=== PATIENT | female | born 1985 | race Caucasian/White ===

== ENCOUNTER 2021-06-10 08:00 | Emergency (ER) | payer MEDICAID, SELFPAY ==
--- NOTE | ~2021-06-10 | CT_ITS ---
EXAMINATION: CT HEAD WITHOUT IV CONTRAST CT MAXILLOFACIAL WITHOUT IV CONTRAST INDICATION: Right ear pain/bleeding. Mastoid tenderness. COMPARISON: Head CT 05/11/2019. TECHNIQUE: Multidetector CT acquisitions of the head and maxillofacial region were obtained without IV contrast. Multiplanar reformats were acquired and utilized for image interpretation. This CT examination was performed using dose optimization techniques as appropriate, variously including the following: *Automated exposure control *Adjustment of mA and/or kV according to patient size (this includes techniques or standardized protocols for targeted exams where dose is matched to indication/reason for exam; i.e. extremities or head) *Use of iterative reconstruction technique FINDINGS: HEAD: There is no intracranial hemorrhage, hydrocephalus, extra-axial surface collection, midline shift, or other herniation pattern. Salazar to white matter differentiation is diffusely maintained without evidence of an evolved acute territorial infarct. The basilar cisterns are preserved. No significant soft tissue abnormality. MAXILLOFACIAL: No temporal bone fractures. Mastoid air cells and middle ear cavities are clear. No additional maxillofacial fractures. Large defect within the cartilaginous nasal septum and absence of the middle and inferior turbinates bilaterally that should be correlated for any sinonasal surgery. If there has been no surgery in the past, underlying bony erosion should be considered and direct visual inspection advised. There is fairly extensive maxillary and ethmoid air cell disease with associated maxillary sinus fluid levels that can be correlated for clinical signs of acute sinusitis. CT/CT facial bones wo con IMPRESSION: - There are no acute intracranial findings. - No temporal bone fractures. Mastoid air cells and middle ear cavities are clear. 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 If there has been no surgery in the past, underlying bony erosion should be considered and direct visual inspection advised. There is fairly extensive maxillary and ethmoid air cell disease with associated maxillary sinus fluid levels that can be correlated for clinical signs of acute sinusitis.
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
[2021-06-10 08:05] VITALS: BP 95/58; PULSE 72; RESP 18; TEMP 36.3; O2SAT 100; BMI 24.7
--- NOTE | 2021-06-10 08:30 | PC.NURSE ---
call x2 no answer
[2021-06-10] MEDS: Ketorolac Tromethamine 30 MG/ML VIAL IM (09:37)
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
== END 2021-06-10 10:35 | disposition home or self-care (01) ==
PROVIDERS: Emergency Provider Emergency Medicine; PCP Nurse Practitioner Family
DX: H60.391 Other infective otitis externa, right ear (principal); J01.10 Acute frontal sinusitis, unspecified; S20.212A Contusion of left front wall of thorax, initial encounter; Y04.2XXA Assault by strike against or bumped into by another person, initial encounter; Y93.9 Activity, unspecified; Y92.9 Unspecified place or not applicable; Y99.9 Unspecified external cause status
CPT/HCPCS: 70450; 70486; 71101; 96372; 99284; J1885

== ENCOUNTER 2022-02-03 10:37 | Emergency (ER) | payer MEDICAID, SELFPAY ==
--- NOTE | ~2022-02-03 | CT_ITS ---
EXAMINATION: CT ANGIOGRAM OF THE CHEST WITH AND WITHOUT CONTRAST (CT PULMONARY ANGIOGRAM FOR PE) CLINICAL INFORMATION: + dimer cp sob COMPARISON: None TECHNIQUE: Prior to contrast administration, noncontrast localization images were obtained. Subsequently, multidetector volumetric imaging was performed from the thoracic inlet to below the diaphragms following the administration of 56 mL Omnipaque 350 intravenous contrast. No contrast reaction reported Sagittal, coronal, and MIP oblique sagittal reformatted images were obtained on the CT workstation, uploaded to PACS, and reviewed. This CT examination was performed using dose optimization techniques as appropriate, variously including the following: *Automated exposure control *Adjustment of mA and/or kV according to patient size (this includes techniques or standardized protocols for targeted exams where dose is matched to indication/reason for exam; i.e. extremities or head) *Use of iterative reconstruction technique Total exam dose-length product 211 mGy-cm FINDINGS: QUALITY OF STUDY/CONTRAST BOLUS: Satisfactory. PULMONARY ARTERIES: No central or segmental pulmonary emboli. THORACIC AORTA: No aneurysm or dissection. LUNG: No focal consolidation, nodules or masses. PLEURA: No pleural effusion or pneumothorax. MEDIASTINUM: Normal heart size. No pericardial effusion. No hilar or mediastinal lymphadenopathy. No evidence of septal bowing or right heart strain. CHEST WALL/AXILLA: No axillary or internal mammary lymphadenopathy. OSSEOUS STRUCTURES: There is levoscoliosis of thoracic spine and dextroscoliosis of upper lumbar spine UPPER ABDOMEN: Unremarkable. No reflux of contrast into the hepatic veins to suggest elevated right heart pressures. CT/CT angio chest PE protocol IMPRESSION: No evidence of pulmonary embolism or any other abnormalities in the chest. VTE: negative
--- NOTE | ~2022-02-03 | XR_ITS ---
EXAMINATION: XR CHEST CLINICAL INFORMATION: Anterior chest wall pain, without injury COMPARISON: June 2021 TECHNIQUE: Frontal view of the chest was obtained. FINDINGS: No significant abnormality is noted involving the heart, lungs, mediastinum or soft tissues. There is dextroscoliosis of thoracic spine stable since previous study XR/XR chest 1V IMPRESSION: Unremarkable examination.
--- NOTE | 2022-02-03 10:51 | ECG_ITS ---
Test Reason : CP Blood Pressure : / mmHG Vent. Rate : 084 BPM Atrial Rate : 084 BPM P-R Int : 120 ms QRS Dur : 078 ms QT Int : 400 ms P-R-T Axes : 070 052 055 degrees QTc Int : 472 ms Normal sinus rhythm Minimal voltage criteria for LVH, may be normal variant ( Sokolow-Wiggins ) Borderline ECG When compared with ECG of 17-MAY-2007 17:59, No significant change was found Referred By: Generic ED Physician Electronically Signed By:МАРИНА ROWAN
[2022-02-03 11:06] VITALS: BP 113/80; PULSE 81; RESP 18; TEMP 36.4; O2SAT 99; BMI 23.9
[2022-02-03 11:32] LABS: MANUAL DIFF FLAG NO
[2022-02-03 11:35] LABS: Basophils Percent Auto 0.5 % (0-2); Eosinophils Absolute Auto 0.2 X10*3/uL (0.0-0.4); Eosinophils Percent Auto 2.3 % (0-4); Hematocrit 39.2 % (37.0-47.0); Hemoglobin 13.2 g/dl (12.0-16.0); Imm Gran Abs Auto 0.03 X10*3/uL (0.00-0.03); Imm Gran Pct Auto 0.4 % (0.0-0.4); Lymphocytes Absolute Auto 1.4 X10*3/uL (1.2-4.9); Lymphocytes Percent Auto 18.2 % (20-40); Mean Corpuscular HGB Conc 33.7 g/dl (31.0-35.0); Mean Corpuscular Hemoglobin 29.7 pg (27.0-33.0); Mean Corpuscular Volume 88.1 fL (80.0-98.0); Mean Platelet Volume 9.2 fL (9.4-12.3); Monocytes Absolute Auto 0.6 X10*3/uL (0.1-1.2); Monocytes Percent Auto 8.1 % (2-11); Neutrophils Absolute Auto 5.5 x10*3/uL (2.0-8.3); Neutrophils Percent Auto 70.5 % (45-73); Platelet Count 301 X10*3/uL (160-400); Red Blood Count 4.45 X10*6/uL (4.20-5.50); Red Cell Distribution Width 13.2 % (11.0-16.0); White Blood Count 7.8 X10*3/uL (4.8-10.8)
[2022-02-03 11:49] LABS: Anion Gap 17 (12-20); Blood Urea Nitrogen 8 mg/dL (9-16); Calcium 9.2 mg/dL (8.4-10.2); Carbon Dioxide 19 mmol/L (22-29); Chloride 106 mmol/L (96-108); Creatinine Clr Calc Pharmacy 88.9; Estimated Glomerular Filt Rate > 60; Glucose Random 84 mg/dL (60-115); Sodium 138 mmol/L (135-145)
[2022-02-03 11:52] LABS: Troponin-I High Sensitivity < 3.5 ng/L (<3.5-17.0)
--- NOTE | 2022-02-03 16:30 | ED_ITS ---
HPI - Chest Pain General Chief Complaint: Chest Pain Stated Complaint: chest pain L side Time Seen by Provider: 02/03/22 16:29 Source: patient Mode of arrival: ambulatory Limitations: no limitations History of Present Illness HPI narrative: 37-year-old female with no significant history presenting to the emergency department complaints of left-sided chest pain with intermittent radiation to left arm, patient describes the pain as sharp, severe, 10/10 and always present however fluctuating in intensity. Patient reports that the pain started suddenly 3 days ago when she was sitting there doing nothing. Reports pain is worse with certain movements, and with palpation she also reports that it is worse with inspiration. She denies any trauma to the area. Denies personal or family history of cardiac disease. She denies any drugs or alcohol. Tells me she is a current daily smoker tobacco and marijuana. She reports that when she has severe pain she does note some shortness of breath. Denies any recent sick contacts, fevers, chills, nausea, vomiting, abdominal pain, headache, dizziness. MD complaint: chest pain Onset (ago): day(s) (3) Timing of current episode: constant Prior episodes: No Pain location: left chest Pain radiation: left arm Severity: moderate Quality: sharp Relieving factors: nothing Exacerbating factors: nothing Treatment prior to arrival: none Related Data Previous Rx's Medication Instructions Recorded amoxicillin 875 mg-potassium 1 tab PO BID 10 days #20 tabs 06/10/21 clavulanate 125 mg tablet (Augmentin) cyclobenzaprine 10 mg tablet 10 mg PO TID 3 days #9 tabs 06/10/21 ketorolac 10 mg tablet 10 mg PO Q6H pain 5 days #20 tabs 06/10/21 ofloxacin 0.3 % ear drops 10 drp otic (ear) right Q12H 14 06/10/21 days #10 mL prednisolone acetate 1 % eye 1 drp ophthalmic (eye) BID #15 mL 06/10/21 drops,suspension lidocaine 5 % topical patch 1 patch topical DAILY PRN pain #15 02/03/22 ea Allergies Allergy/AdvReac Type Severity Reaction Status Date / Time No Known Allergies Allergy Verified 02/03/22 11:06 Review of Systems Review of Systems: Constitutional : No Weight loss, No Fever, No Chills, No Fatigue, No Malaise ENT/Mouth : No sore throat, No Rhinorrhea Eyes: No Eye Pain, No Swelling, No Redness Cardiovascular : + Chest Pain, + SOB, No Dyspnea on Exertion, No Orthopnea, No Edema, No Palpitations Respiratory : No Cough, No Sputum, No Wheezing Gastrointestinal : No Nausea, No Vomiting, No Diarrhea, No Constipation, No abdominal Pain, No Hematochezia, No Melena Genitourinary : No Dysuria, No Urinary Frequency, No Hematuria, Musculoskeletal : No joint pain, No Myalgias, No Joint Swelling Skin : No Skin Lesions, No rash Neuro : No Weakness, No Numbness, No Dizziness, No Headache Psych : No Anxiety/Panic, No Depression All other systems reviewed and are negative Yes all other systems are reviewed and are negative [facility] Past Medical History Attestation statement: The following information was validated with the patient. Source: old records reviewed and nursing notes reviewed Social History Social History Patient Tobacco Use Status: Current everyday Tobacco user Use of substances other than those prescribed or required for medical reasons: Yes Substance Use Type: Marijuana Advance Directives: No Advance Directives Information Provided: Yes Patient : No Physical Exam Vital Signs: Vital Signs: Last Vital Signs Temp 97.5 F 02/03/22 11:06 Pulse 71 02/03/22 17:02 Resp 16 02/03/22 17:02 BP 117/73 02/03/22 17:02 Pulse Ox 99 02/03/22 17:02 O2 Del Method 02/03/22 17:02 BMI result Body Mass Index 23.9 VSS Appearance: Alert.? Oriented X3.? No acute distress.? Head: Normocephalic, atraumatic, no step-offs or deformities Eyes: Pupils equal, round and reactive to light.? ENT: Pharynx normal.? Neck: Normal inspection.? Neck supple.? CVS: Normal heart rate and rhythm.? Pulses normal.?+ palpation with anterior left chest wall. No overlying deformities, lumps or masses. Respiratory: No respiratory distress.? Breath sounds normal.? Abdomen: Soft and nontender.? Skin: Skin warm and dry.? Normal skin color.? Normal skin turgor.? Extremities: No lower extremity edema.? No calf ttp. , negative Jennifer bilaterally. n5/5 strength to bilateral upper and lower extremities Neuro: Oriented X 3.? No motor deficit.? No sensory deficit. CN 2-12 intact Course Reevaluation(s) Reevaluation #1: CBC appears to be within normal limits. Chemistry with no acute electrolyte abnormalities requiring intervention. Troponin negative, EKG nonischemic. Second troponin pending. Chest x-ray with no acute findings. Time: 16:33 Reevaluation #2: Second troponin negative. D-dimer was initially elevated, CTA was obtained with no evidence of PE. PT negative. Patient with stable vital signs likely costochondritis. Patient will be discharged home. Time: 18:45 MDM - Chest Pain MDM Narrative Medical decision making narrative: 1630 37-year-old female no significant medical history presenting with left-sided [facility] [facility] pain radiating down the left arm, intermittent nature described as uncomfortable, sharp. No significant personal or cardiac family history. Physical examination w/ pain to palpation to l. anterior chest wall. Very low suspicion for ACS, PE, dissection. Likely costochondritis or noncardiac chest pain. Plan at this time is to obtain basic labs, cardiac enzymes, EKG, cardiac monitoring, chest x-ray Medical Records Data Attestation: I reviewed the patient's medical records. Lab Data Attestation: I reviewed the patient's lab results. Result diagrams: 02/03/22 11:28 02/03/22 11:28 Labs: Lab Results 02/03/22 02/03/22 02/03/22 Range/Units 11:28 11:28 11:28 WBC 7.8 (4.8-10.8) X10*3/uL RBC 4.45 (4.20-5.50) X10*6/uL Hgb 13.2 (12.0-16.0) g/dl Hct 39.2 (37.0-47.0) % MCV 88.1 (80.0-98.0) fL MCH 29.7 (27.0-33.0) pg MCHC 33.7 (31.0-35.0) g/dl RDW 13.2 (11.0-16.0) % Plt Count 301 (160-400) X10*3/uL MPV 9.2 L (9.4-12.3) fL Immature Gran % (Auto) 0.4 (0.0-0.4) % Neut % (Auto) 70.5 (45-73) % Lymph % (Auto) 18.2 L (20-40) % Martin % (Auto) 8.1 (2-11) % Eos % (Auto) 2.3 (0-4) % Baso % (Auto) 0.5 (0-2) % Lymph # (Auto) 1.4 (1.2-4.9) X10*3/uL Martin # (Auto) 0.6 (0.1-1.2) X10*3/uL Eos # (Auto) 0.2 (0.0-0.4) X10*3/uL Baso # (Auto) 0.0 (0.0-0.2) X10*3/uL Abs Immat Gran (auto) 0.03 (0.00-0.03) X10*3/uL Absolute Neuts (auto) 5.5 (2.0-8.3) x10*3/uL Absolute Nucleated RBC 0.000 (0.0-0.012) X10*3/uL Nucleated RBC % (auto) 0.0 (0.0-0.2) /100WBC D-Dimer High Sensitivty NG/ML Sodium 138 (135-145) mmol/L Potassium 4.0 (3.3-5.1) mmol/L Chloride 106 (96-108) mmol/L Carbon Dioxide 19 L (22-29) mmol/L Anion Gap 17 (12-20) BUN 8 L (9-16) mg/dL Creatinine 0.73 (0.5-1.4) mg/dL Estim Creat Clear Calc 88.9 Estimated GFR > 60 Random Glucose 84 (60-115) mg/dL Calcium 9.2 (8.4-10.2) mg/dL Troponin I High Sens < 3.5 (<3.5-17.0) ng/L COVID-19 (DARRIAN) (Negative) COVID-19 Clin Com 02/03/22 02/03/22 02/03/22 Range/Units 16:45 16:45 18:11 WBC (4.8-10.8) X10*3/uL RBC (4.20-5.50) X10*6/uL Hgb (12.0-16.0) g/dl Hct (37.0-47.0) % MCV (80.0-98.0) fL MCH (27.0-33.0) pg MCHC (31.0-35.0) g/dl RDW (11.0-16.0) % Plt Count (160-400) X10*3/uL MPV (9.4-12.3) fL Immature Gran % (Auto) (0.0-0.4) % Neut % (Auto) (45-73) % Lymph % (Auto) (20-40) % Martin % (Auto) (2-11) % Eos % (Auto) (0-4) % Baso % (Auto) (0-2) % Lymph # (Auto) (1.2-4.9) X10*3/uL Martin # (Auto) (0.1-1.2) X10*3/uL Eos # (Auto) (0.0-0.4) X10*3/uL Baso # (Auto) (0.0-0.2) X10*3/uL Abs Immat Gran (auto) (0.00-0.03) X10*3/uL Absolute Neuts (auto) (2.0-8.3) x10*3/uL Absolute Nucleated RBC (0.0-0.012) X10*3/uL Nucleated RBC % (auto) (0.0-0.2) /100WBC D-Dimer High Sensitivty 747 NG/ML Sodium (135-145) mmol/L Potassium (3.3-5.1) mmol/L Chloride (96-108) mmol/L Carbon Dioxide (22-29) mmol/L Anion Gap (12-20) BUN (9-16) mg/dL Creatinine (0.5-1.4) mg/dL Estim Creat Clear Calc Estimated GFR Random Glucose (60-115) mg/dL Calcium (8.4-10.2) mg/dL Troponin I High Sens < 3.5 (<3.5-17.0) ng/L COVID-19 (DARRIAN) Negative (Negative) COVID-19 Clin Com See Note ECG Data ECG #1: Attestation: I personally reviewed and interpreted this ECG as follows: ECG interpretation date: 02/03/22 ECG interpretation time: 16:33 Prior ECG tracings: available for review Interpretation: Ventricular rate of 84, NE normal, QRS normal, QT/QTC normal. EKG with normal sinus rhythm, no ST elevations or inversions concerning for ischemia. No changes when compared to EKG from May 2007 Critical Care Time Critical Care Time Critical Care Time: No Discharge Plan Discharge Clinical Impression: Chest pain not due to acute coronary syndrome, Costalchondritis Patient Disposition: Home, Self-Care Instructions: Chest Wall Pain (ED) Additional Instructions: Take your medications as prescribed. If you were prescribed antibiotics today, it is important that you take your medication to their entirety, do not skip any doses, do not finish them early. Follow-up with your primary care provider this week. Return to the emergency department with new or worsening symptoms. Such as fevers, chills, chest pain, shortness of breath, nausea, vomiting, dizziness, headache, vision changes, lethargy In case of emergency call 911 CT/CT angio chest PE protocol IMPRESSION: No evidence of pulmonary embolism or any other abnormalities in the chest. ? VTE: negative Prescriptions: New lidocaine 5 % adhesive patch,medicated 1 patch topical DAILY PRN (Reason: pain) Qty: 15 0RF Rx Instructions: leave on most painful area for up to 12 hrs No Action amoxicillin-pot clavulanate [Augmentin] 875-125 mg tablet 1 tab PO BID 10 Days Qty: 20 0RF ofloxacin 0.3 % drops 10 drp otic (ear) right Q12H 14 Days Qty: 10 0RF prednisolone acetate 1 % drops,suspension 1 drp ophthalmic (eye) BID Qty: 15 0RF Rx Instructions: One drop twice a day to right ear ketorolac 10 mg tablet 10 mg PO Q6H 5 Days Qty: 20 0RF cyclobenzaprine 10 mg tablet 10 mg PO TID 3 Days Qty: 9 0RF Referrals: [facility] [Primary Care Provider] - 2 days Dane Ramirez MD [Physician] - 2 weeks Stand Alone Forms: Work/School Release
[2022-02-03 17:02] VITALS: BP 117/73; PULSE 71; RESP 16; O2SAT 99
[2022-02-03 17:02] LABS: D Dimer High Sensitivity 747 NG/ML
[2022-02-03] MEDS: Lidocaine 4 % Patch ADH..PATCH 1 PATCH TRANSDERMA (17:16)
[2022-02-03] MEDS: Ketorolac Tromethamine 15 MG/ML VIAL IVPUSH (17:17)
[2022-02-03 17:19] LABS: Troponin-I High Sensitivity < 3.5 ng/L (<3.5-17.0)
[2022-02-03] MEDS: iohexoL 350 MG/ML 100 ML INFUS..BTL IV (18:06)
[2022-02-03 18:34] LABS: COVID-19 Test Negative (Negative)
== END 2022-02-03 19:53 | disposition home or self-care (01) ==
PROVIDERS: Physician Assistant; Emergency Provider Emergency Medicine
DX: R07.89 Other chest pain (principal); M94.0 Chondrocostal junction syndrome [Tietze]; Z20.822 Contact with and (suspected) exposure to COVID-19; F17.200 Nicotine dependence, unspecified, uncomplicated; F12.90 Cannabis use, unspecified, uncomplicated
CPT/HCPCS: 36415; 71045; 71275; 80048; 84484; 85025; 85379; 87635; 93005; 96374; 99284; 99285; J1885; Q9967

== ENCOUNTER 2022-07-25 09:30 | Emergency (ER) | payer MEDICAID, SELFPAY ==
[2022-07-25] VITALS (14 sets, daily range): BP systolic 106–132; BP diastolic 66–88; PULSE 75–121; RESP 12–22; TEMP 36.1–36.9; O2SAT 93–100; BMI 21.2
--- NOTE | ~2022-07-25 | CT_ITS ---
EXAMINATION: CT HIP WITHOUT CONTRAST, RIGHT CLINICAL INFORMATION: Further evaluate right hip. Dislocation. COMPARISON: Most recent hip and pelvic radiographs done earlier the same day. TECHNIQUE: Contiguous axial CT images of the right hip were obtained without contrast. Multiplanar reformats were provided and reviewed. This CT examination was performed using dose optimization techniques as appropriate, variously including the following: *Automated exposure control *Adjustment of mA and/or kV according to patient size (this includes techniques or standardized protocols for targeted exams where dose is matched to indication/reason for exam; i.e. extremities or head) *Use of iterative reconstruction technique DLP: 163 mGy-cm FINDINGS: The femoral head now appears well seated within the acetabulum. There is a displaced posterior acetabular fracture with the fracture fragment measuring up to 1.8 x 3.6 cm (AP x CC). There are adjacent tiny fracture fragments. Additionally there are tiny cortical fracture fragments at the central aspect of the femoral head consistent with a ligamentum teres avulsion injury. Additional tiny cortical fracture fragments along the posteroinferior aspect of the acetabulum with tiny cortical fracture fragments in the inferior joint space likely related to the inferomedial femoral head. Moderate right hip joint effusion. No abnormal soft tissue mass or fluid collection. Visualized muscles and tendons are grossly intact however, evaluation significantly limited on CT examination. The visualized intrapelvic structures are unremarkable. CT/CT hip RT wo IV con IMPRESSION: 1. The femoral head now appears well seated within the acetabulum. There is a displaced posterior acetabular fracture with the fracture fragment measuring up to 1.8 x 3.6 cm (AP x CC). Additional tiny cortical fracture fragments at the central aspect of the femoral head consistent with a ligamentum teres avulsion injury. Additional tiny cortical fracture fragments along the posteroinferior aspect of the acetabulum with tiny cortical fracture fragments in the inferior joint space likely related to the inferomedial femoral head. 2. Moderate right hip joint effusion.
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
--- NOTE | ~2022-07-25 | CT_ITS ---
EXAMINATION: CT CERVICAL SPINE WITHOUT CONTRAST CLINICAL INFORMATION: Neck pain status post fall. COMPARISON: None TECHNIQUE: Multiple axial images of the cervical spine were obtained without the administration of intravenous contrast. Coronal and sagittal reformatted images were obtained. This CT examination was performed using dose optimization techniques as appropriate, variously including the following: *Automated exposure control *Adjustment of mA and/or kV according to patient size (this includes techniques or standardized protocols for targeted exams where dose is matched to indication/reason for exam; i.e. extremities or head) *Use of iterative reconstruction technique DLP: 339.64 mGy-cm FINDINGS: Mild cervical thoracic dextro scoliosis is seen. There is straightening of the normal cervical lordosis with normal spinal alignment. Mild marginal osteophyte formation is seen at C5-6. The vertebral bodies and odontoid processes are intact. The neural foramina are patent. The facet joints are unremarkable. The spinous processes are intact. The soft tissues are unremarkable. No lymphadenopathy. The thyroid gland is unremarkable. Mild biapical paraseptal emphysema is seen. CT/CT cervical spine wo IV con IMPRESSION: 1. Straightening of the normal cervical lordosis may be secondary to positioning, muscle spasm and/or dextro scoliosis. 2. Mild cervical thoracic dextroscoliosis. 3. Mild biapical paraseptal emphysema. Fleischner guidelines were followed.
--- NOTE | ~2022-07-25 | CT_ITS ---
EXAMINATION: CT HEAD WITHOUT CONTRAST CLINICAL INFORMATION: Headache status post fall. COMPARISON: Head CT scan dated 06/10/2021. TECHNIQUE: Contiguous axial imaging was performed from the skull base to vertex without intravenous administration of contrast. Coronal and sagittal reformatted images were obtained. This CT examination was performed using dose optimization techniques as appropriate, variously including the following: *Automated exposure control *Adjustment of mA and/or kV according to patient size (this includes techniques or standardized protocols for targeted exams where dose is matched to indication/reason for exam; i.e. extremities or head) *Use of iterative reconstruction technique DLP: 927 mGy-cm FINDINGS: The cortical sulci are normal. The lateral ventricles are symmetrical. The third and fourth ventricles are in their normal midline position. The basilar and prepontine cisterns are unremarkable. There is no acute intra or extracerebral abnormality. There is no mass effect or midline shift. Sections through the bony calvarium are unremarkable. The paranasal sinuses show moderate to severe degenerative paranasal sinus mucosal thickening is seen in the frontal, ethmoid and maxillary sinuses. The sphenoid sinuses are clear. Postsurgical changes are seen in the nasal cavity with septal resection and moderate The bony orbits and orbital contents are unremarkable. CT/CT head/brain wo IV con IMPRESSION: 1. No acute intracranial pathology. 2. Interval worsening of paranasal sinus inflammatory changes.
--- NOTE | ~2022-07-25 | FL_ITS ---
EXAMINATION: XR FLUOROSCOPY WITH IMAGES CLINICAL INFORMATION: Dislocation right hip COMPARISON: Right hip/pelvic radiographs 07/25/2022 TECHNIQUE: Fluoroscopy Supervised By: Dr. Jonathan Villanueva. Fluoroscopy Time: Under 1 minute. Cumulative Dose: 0.0102 mGy. Images: 1. FINDINGS: The right hip alignment appears normal on this single AP view. Previously noted dislocation no longer demonstrated. Again, there is ossific fragments adjacent to the posterior acetabular rim likely previous avulsion related to the dislocation. The pubis shows no diastases. FL/FL guidance in OR IMPRESSION: 1. Right hip alignment appears normal on single AP view. 2. Ossific fragments adjacent to posterior acetabular rim similar to prior study.
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
--- NOTE | ~2022-07-25 | XR_ITS ---
EXAMINATION: XR SHOULDER, LEFT CLINICAL INFORMATION: Left shoulder pain status post fall. COMPARISON: None TECHNIQUE: Three views of the left shoulder. FINDINGS: The bones and soft tissues are normal. No fracture. Glenohumeral and acromioclavicular alignment is anatomic with normal joint space. No abnormal soft tissue calcifications. XR/XR shoulder LT min 2V IMPRESSION: Unremarkable left shoulder.
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
[2022-07-25] MEDS: Morphine Sulfate 4 MG/ML CARTRIDGE IM (09:49)
[2022-07-25] MEDS: LORazepam 1 MG TABLET PO (09:50)
[2022-07-25] MEDS: HYDROmorphone HCl 1 MG/ML SYRINGE IM (11:03)
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
--- NOTE | 2022-07-25 13:09 | PC.NURSE ---
Per anesthesia Dr. Hawkins and Dr. Roman, patient to proceed to OR without covid resulted.
[2022-07-25 13:19] LABS: COVID-19 Test Negative (Negative); IDNOW Serial# BCCEAD1C
--- NOTE | 2022-07-25 13:53 | P.BOP_ITS ---
Brief Operative Note Date of Service: 07/25/22 Pre-op diagnosis: Right hip dislocation Post-op diagnosis: same Procedure: Closed reduction right hip Surgeon: Jonathan Villanueva MD Anesthesia: GETA Was an Ticket Taker used for this Procedure?: Yes Ticket Taker: Hanny Mason Estimated blood loss (mL): 0 IV fluids (mL): 200 Pathology: none sent Condition: stable Disposition: PACU
[2022-07-25 16:56] LABS: Basophils Percent Auto 0.2 % (0-2); Hematocrit 40.9 % (37.0-47.0); Hemoglobin 13.6 g/dl (12.0-16.0); Imm Gran Abs Auto 0.08 X10*3/uL (0.00-0.03); Imm Gran Pct Auto 0.5 % (0.0-0.4); Lymphocytes Absolute Auto 0.7 X10*3/uL (1.2-4.9); Lymphocytes Percent Auto 4.4 % (20-40); MANUAL DIFF FLAG SCAN; Mean Corpuscular HGB Conc 33.3 g/dl (31.0-35.0); Mean Corpuscular Hemoglobin 28.9 pg (27.0-33.0); Mean Platelet Volume 9.1 fL (9.4-12.3); Monocytes Absolute Auto 0.4 X10*3/uL (0.1-1.2); Monocytes Percent Auto 2.6 % (2-11); Neutrophils Percent Auto 92.3 % (45-73); Platelet Count 337 X10*3/uL (160-400); Red Cell Distribution Width 13.9 % (11.0-16.0); SCAN SMEAR FLAG 1; White Blood Count 16.3 X10*3/uL (4.8-10.8)
[2022-07-25 17:15] LABS: SLIDE REVIEW VERIFIED
[2022-07-25 17:16] LABS: Alanine Aminotransferase 17 U/L (0-31); Albumin Level 4.3 g/dL (3.5-5.0); Alkaline Phosphatase 70 U/L (39-117); Anion Gap 17 (12-20); Aspartate Amino Transferase 28 U/L (5-31); Bilirubin Total 0.7 mg/dL (0.0-1.0); Blood Urea Nitrogen 15 mg/dL (9-16); Carbon Dioxide 20 mmol/L (22-29); Chloride 104 mmol/L (96-108); Creatinine Clr Calc Pharmacy 96.9; Estimated Glomerular Filt Rate > 60; Glucose Random 78 mg/dL (60-115); Potassium 4.9 mmol/L (3.3-5.1); Sodium 136 mmol/L (135-145); Total Protein 7.4 g/dL (6.5-8.0)
[2022-07-25] MEDS: Morphine Sulfate Immed Release 15 MG TABLET PO (19:19)
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
[2022-07-26 00:16] VITALS: PULSE 85; RESP 16; O2SAT 98
[2022-07-26] MEDS: Acetaminophen 325 MG TABLET 650 MG PO ×4 (00:39→22:11)
--- NOTE | 2022-07-26 00:41 | PC.NURSE ---
PT WELLER x 3 medicated per mar for 9/10 R hip pain. Pt requesting to use bedpan.
--- NOTE | 2022-07-26 00:42 | PC.NURSE ---
Pina HURTADO met with pt plan for pt to have PT consult in the morning. Pt in agreement.
[2022-07-26 03:44] VITALS: RESP 17
[2022-07-26 04:21] VITALS: PULSE 69; RESP 14; O2SAT 98
[2022-07-26 05:37] VITALS: BP 123/74; PULSE 96; RESP 16; O2SAT 98
--- NOTE | 2022-07-26 06:00 | PC.NURSE ---
Pt reported she is unable to void feels like bladder is going to blow. Okay per Dr. Grady to insert a mcneill. Per Juju mri technologist bladder scan was 848.
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
[2022-07-26] MEDS: oxyCODONE HCl Immed Release 5 MG TABLET PO ×3 (07:21→22:11)
--- NOTE | 2022-07-26 08:55 | PHA.MEDREC ---
Pharmacy Consult ? Medication Reconciliation Pharmacy has completed the medication reconciliation. Spoke to patient about home meds and she states takes no medications on daily basis.
--- NOTE | 2022-07-26 10:04 | PC.NURSE ---
phys therapy at bedside for eval, pt has significant difficulty bearing weight on unaffected l leg using walker. pt will likely be referred to acute rehab. pt tearful throughout eval, more comfortable once placed back in stretcher. wctm.
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
[2022-07-26 13:52] VITALS: BP 137/90; PULSE 85; RESP 18; TEMP 37; O2SAT 100
[2022-07-26 20:10] VITALS: BP 134/88; PULSE 85; RESP 22; TEMP 36.9; O2SAT 100
[2022-07-27 06:00] VITALS: BP 118/72; PULSE 77; RESP 15; O2SAT 99
[2022-07-27] MEDS: oxyCODONE HCl Immed Release 5 MG TABLET PO ×3 (07:25→20:48)
[2022-07-27] MEDS: Acetaminophen 325 MG TABLET 650 MG PO ×3 (07:25→20:48)
--- NOTE | 2022-07-27 12:10 | MHC.CM.ED ---
Patient remains in ER. [facility] not able to offer a bed. Referral broadcasted within 50 miles of patient's residence for acute rehab and short term rehab. Continue to monitor for d/c needs.
[2022-07-27] MEDS: polyethylene glycoL 3350 17 GM POWD.PACK PO (13:17)
[2022-07-27 13:47] VITALS: BP 134/72; PULSE 83; RESP 18; O2SAT 100
[2022-07-27 15:36] VITALS: BP 100/54; PULSE 78; O2SAT 100
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
[2022-07-27 22:13] VITALS: BP 105/57; PULSE 67; TEMP 36.9; O2SAT 100
--- NOTE | 2022-07-27 23:30 | PC.NURSE ---
This publicity writer assumed care of this PT at 2300. PT sleeping at this time.
--- NOTE | 2022-07-28 02:05 | PC.NURSE ---
PT continues to sleep, no apparent distress. RR 16.
[2022-07-28 06:05] VITALS: BP 108/77; PULSE 81; RESP 16; TEMP 36.6; O2SAT 98
[2022-07-28] MEDS: oxyCODONE HCl Immed Release 5 MG TABLET PO ×3 (06:10→23:55)
[2022-07-28] MEDS: Acetaminophen 325 MG TABLET 650 MG PO ×2 (06:10→23:55)
--- NOTE | 2022-07-28 06:23 | PC.NURSE ---
Addendum entered by Briana Peterson 07/28/22 06:34: Offered to reposition, PT declined at this time. States Im not ready just yet . Original Note: PT reports 10 R hip pain and shoulder pain. Meds given as documented. Ice packs provided.
[2022-07-28] MEDS: polyethylene glycoL 3350 17 GM POWD.PACK PO (09:48)
[2022-07-28 14:57] VITALS: BP 112/70; PULSE 78; TEMP 36.6; O2SAT 99
--- NOTE | 2022-07-28 16:00 | MHC.EDTECH ---
1600 rounding done ,vitals sign taken ,patient kids and friend came for a visit .
[2022-07-28 16:11] VITALS: BP 110/77; PULSE 88; RESP 16; TEMP 36.6; O2SAT 100
--- NOTE | 2022-07-28 17:27 | PC.NURSE ---
Patient reporting 9/10 pain to right hip medicated wt PRN 5mg oxycodone. Medication with good relief. Family into visit.
--- NOTE | 2022-07-28 17:35 | MHC.EDTECH ---
pregancy urine sample collected and send to lab .
[2022-07-28 17:42] LABS: UPreg QC Valid YES; Urine Pregnancy NEGATIVE (NEGATIVE)
--- NOTE | 2022-07-28 19:08 | PC.NURSE ---
Visitors at bedside. PT provided with bedside basin with water to wash up. Food heated up per request. States in pain but tolerable at this time.
--- NOTE | 2022-07-28 23:00 | MHC.EDTECH ---
this pct assumed care of patient at 2300 ,patient sister came for a visit ,patient was given toiletries so can washed up ,0000 vitals sign taken ,patient was given fresh pitcher of ice water ,mcneill bag empty 400 ml out put ,patient had food brought in by her sister ,patient ask if i can heat up her food ,patient watching television and eating ,call angel within reach .
[2022-07-28 23:48] VITALS: BP 110/64; PULSE 75; RESP 16; TEMP 36.6; O2SAT 97
--- NOTE | 2022-07-29 02:00 | MHC.EDTECH ---
0200 rounding done ,patient sleeping ,call angel within reach .
--- NOTE | 2022-07-29 05:04 | PC.NURSE ---
PT sleeping, RR 16, no apparent distress, will continue to observe.
[2022-07-29 06:46] VITALS: RESP 18
[2022-07-29 07:20] VITALS: BP 109/64; PULSE 68; RESP 16; O2SAT 98
[2022-07-29] MEDS: oxyCODONE HCl Immed Release 5 MG TABLET PO ×2 (07:26→14:23)
[2022-07-29] MEDS: polyethylene glycoL 3350 17 GM POWD.PACK PO (09:11)
--- NOTE | 2022-07-29 09:15 | PC.NURSE ---
assumed care of this patient at 0700am. medicated for generalized pain 04/16 at 07:30 a.m. 2 heating pads provided to her left back for pain with some effect noted. Did give her 9am meds under unscheduled after several attempts to scan in meds, did notify pharmacy twice, active orders noted. patient has not moved her bowels in several days.
--- NOTE | 2022-07-29 10:10 | PC.NURSE ---
patients reassessment of pain medication is now a / with some effect noted. mcneill cath pulled for approx 300cc of clear yellow urine noted, will ambulate with walker to BRP as patient does not want to use a bedside commode
--- NOTE | 2022-07-29 11:16 | PC.NURSE ---
removed mcneill cath at 10:05am and within 1 hour she was able to void on the toilet. Will get the UA with next void. Ambulated with walker from her room to [facility], did well but very slow and had a great deal of fatigue and pain after, wheelchair was brought for her to use after using the bathroom. pt is OOB still and sitting in her recliner, immobiliser readjusted by myself and tech.
--- NOTE | 2022-07-29 12:35 | MHC.CM.ED ---
[facility] NO [facility]ED OFFERS OF THIS NOTE
[2022-07-29] MEDS: Acetaminophen 325 MG TABLET 650 MG PO (14:23)
[2022-07-29 14:51] LABS: Appearance Urine Clear; Color Urine Yellow; Glucose Urine UA Negative (Negative); Leukocyte Esterase Urine Trace (Negative); Nitrite Urine Negative (Negative); PH 6.5 (5.0-9.0); Specific Gravity - Urine 1.015 (1.005-1.025); UMIC TRIGGER UACC YES; Urine Blood Negative (Negative); Urine Ketones Negative (Negative); Urine Protein Negative (Neg-Trace)
[2022-07-29 14:54] LABS: Bacteria Urine None Seen (None Seen); Hyaline Casts Urine 0-2 /LPF (0-2); WBC Urine 0-5 /HPF (0-5)
[2022-07-29 14:55] LABS: UPreg QC Valid YES; Urine Pregnancy NEGATIVE (NEGATIVE)
[2022-07-29 16:29] VITALS: BP 99/65; PULSE 78; TEMP 36.6; O2SAT 99
--- NOTE | 2022-07-29 23:40 | PC.NURSE ---
Patient is alert and oriented x4, VSS. Patient continues to c/o right leg and lower back pain ranging from 4-8 on 0/10 pain scale. Patient reports she would like to use a w/c for ambulation to the restroom d/t increasing pain with ambulation. fitness technician notified. No s/s of active distress noted. Call angel within pt's reach.
[2022-07-30] MEDS: oxyCODONE HCl Immed Release 5 MG TABLET PO ×4 (00:14→22:44)
[2022-07-30] MEDS: Acetaminophen 325 MG TABLET 650 MG PO ×4 (00:17→22:44)
--- NOTE | 2022-07-30 02:38 | MHC.EDTECH ---
Pt was able to slowly get up with assistance to the wheelchair. Assisted from wheelchair to toilet, pt tolerated it but was in pain 9/10 when transferring from bed to wheelchair and wheelchair to toilet and back. Italia Clifton aware. SG
[2022-07-30 08:09] VITALS: BP 110/66; PULSE 77; RESP 14; TEMP 36.9; O2SAT 94
--- NOTE | 2022-07-30 08:34 | MHC.CM.ED ---
Addendum entered by Alexus Wheat 07/30/22 14:08: Received telephone call from Siri of [facility]. She can be reached via telephone at [phone]. Update given that short term rehab hasn't been found for patient yet. Original Note: Patient remains in ER overflow unit. Clinical updates sent to [facility] via [facility]. Referral sent to the 3 LTAC facilities within 50 miles. Continue to monitor for d/c needs.
[2022-07-30] MEDS: polyethylene glycoL 3350 17 GM POWD.PACK PO (10:09)
[2022-07-30 16:28] VITALS: BP 105/55; PULSE 86; RESP 15; O2SAT 100
--- NOTE | 2022-07-30 18:50 | MHC.CM.ED ---
CM met with patient in ED over flow. Pt in good spirits. Sitting up in recliner chair. States that PT is coming to see her. Stressed to patient need to work at PT while she is here. Pt aware that CM does not have any bed offers yet. CM to follow for discahrge planning.
[2022-07-30 23:51] VITALS: BP 97/50; PULSE 64; RESP 16; TEMP 36.2; O2SAT 97
--- NOTE | 2022-07-30 23:53 | MHC.EDTECH ---
THIS PCT ASSUMED CARE OF PATIENT AT 2300 ,0000 ROUNDING AND VITALS SIGN TAKEN ,PATIENT IN GREAT SPRITS ,WARM BLANKET AND HEATING PACK GIVEN ,JUDI DONOHUE SAID IT WAS OK TO GIVE PT HEAT PACK .
--- NOTE | 2022-07-31 00:18 | PC.NURSE ---
This RN took over care of pt at 2300. pt resting comfortably after medicated with pain meds per sep. pt in good spirits. requested heating pack. PCT gave heating pack to pt.
--- NOTE | 2022-07-31 02:00 | MHC.EDTECH ---
0200 ROUNDING DONE ,PATIENT SLEEPING .
--- NOTE | 2022-07-31 04:08 | MHC.EDTECH ---
0400 rounding done ,patient sleeping .
[2022-07-31 06:00] VITALS: BP 111/55; PULSE 72; RESP 16; TEMP 37.1; O2SAT 97
--- NOTE | 2022-07-31 06:00 | MHC.EDTECH ---
0600 ROUNDING DONE ,VITALS SIGN TAKEN ,PATIENT WAS A 1 ASST AND WALKER WITH AMBULATION TO BATHROOM ,PATIENT VOIDED LARGE AMOUNT OF URINE ,PATIENT WAS IN PAIN RN JALYN AWARE .
[2022-07-31] MEDS: oxyCODONE HCl Immed Release 5 MG TABLET PO ×3 (06:39→16:27)
[2022-07-31] MEDS: Acetaminophen 325 MG TABLET 650 MG PO ×2 (06:40→16:26)
[2022-07-31] MEDS: polyethylene glycoL 3350 17 GM POWD.PACK PO (09:05)
--- NOTE | 2022-07-31 09:59 | MHC.EDTECH ---
Pt assisted to bathroom for shower. Educated on use of call angel.
--- NOTE | 2022-07-31 10:30 | W.PM.OPN ---
Operative Note Operative Note Date of Service: 07/25/22 Narrative: Date of Service: 07/25/22 Pre-op diagnosis: Right hip dislocation Post-op diagnosis: same Procedure: Closed reduction right hip Surgeon: Jonathan Villanueva MD Anesthesia: HUSSEINA Was an Key Entry Operator used for this Procedure?: Yes Key Entry Operator: Hanny Mason Estimated blood loss (mL): 0 IV fluids (mL): 200 Pathology: none sent Condition: stable Disposition: PACU Patient was brought to the operating room and placed supine on the surgical table. A time out was called to identify proper site, proper procedure. Once she was fully anesthetized I gnetly reduced her right hip with a traction and internal rotation. IT reduced easily. Radiographs were then obtained which showed a concentrically reduced hip with redemonstration of a posterior acetabular fragment. I flexed her hip and applied a full ROM with posterior compression and there was no instability. She was awakened by anesthesia and brought to the recovery room in stable condition. There were no known complications.
--- NOTE | 2022-07-31 11:00 | PC.NURSE ---
PT UP TO AMBULATE WITH PHYSICAL THERAPY. SHOWERED. SITTING IN RECLINER. MEDS GIVEN DOCUMENTED.
--- NOTE | 2022-07-31 14:11 | PC.NURSE ---
THIS RN OBSERVED PT WITH A GREEN VAPE IN HER MOUTH AND SHE QUICKLY REMOVED IT AND HID IT UNDER HER BLANKET. THIS RN NOTIFIED SECURITY. SECURITY DID SAFETY CHECK IN PT'S ROOM. 2 VAPES, 1 WIRE TEMPERER, 1 CIGARETTE. ITEMS BAGGED AND LABELED BY SECURITY.
--- NOTE | 2022-07-31 14:30 | PC.NURSE ---
PT'S COUSIN RONI VISITING, CURRENTLY READING BIBLE AND PRAYING.
--- NOTE | 2022-07-31 16:00 | PC.NURSE ---
PT'S DAUGHTER WAS BROUGHT IN TO VISIT HER BY HER [id number]. PT'S [id number] BROUGHT IN [facility]. MEDS GIVEN DOCUMENTED.
--- NOTE | 2022-07-31 17:01 | MHC.EDTECH ---
Assisted patient with preparing for shower and getting off the toilet. Ankita Woodruff
[2022-07-31 18:05] VITALS: BP 99/53; PULSE 84; RESP 20; TEMP 36.7; O2SAT 100
--- NOTE | 2022-07-31 18:08 | MHC.CM.ED ---
Addendum entered by Tere Hermosillo 07/31/22 20:20: CM met with patient to discuss PT progress, bed updates and patient progress with DCF expectations. Pt did telephone [facility] and is awaiting a telephone intake. Pt's cell phone was disconnected for non-payment. Pt states she will call again tomorrow and request to use hospital phone. Family may help with phone money. Pt did call [facility]. They are arranging a referral to [facility] per patient. After discharge, [facility] wants return call to set up appointment to re-establish care and assess need for medications for depression and anxiety. Pt called and spoke with DCF worker. Pt did reach out to [facility] regarding back rent on her apartment. CM explained that pt called Isamar from [facility] and left message to return call. Pt will try to call again. Pt expresses much anxiety and feelings of depression with her life situation, loss of children to DCF and lack of STR options. Will speak with provider regarding medications. Pt did tell CM she was able to visit with her daughter today. CM to follow for discharge planning. Original Note: Received tiger from over flow unit with request to call Isamar Constantino from [facility] ([phone]) with regards to application for patient to have a safe place to live. Returned telephone call at [phone]. No response. Message left with contact information. Still no bed offers. Some LTAC outstanding. Per record review, pt continues to have PT. Very motivated. Making small progress. OOB with one assist. Ambulating to BR with walker. Continues to have pain. CM to follow for Discharge planning.
--- NOTE | 2022-07-31 20:48 | PC.NURSE ---
Addendum entered by Anali Balderas RN 08/01/22 06:54: Report given to JUDI Gibbs Original Note: report received from JUDI Heath pt is alert and oriented resting in bed no signs of acute distress notice breathing equally unlabored
--- NOTE | 2022-07-31 20:48 | MHC.CM.ED ---
GENESIS spoke with Alisa VALDIVIA regarding patient hx of depression and anxiety. Reviewed patient record and plan of care. Alisa VALDIVIA will review record to assess if any medications are warranted for patient complaints of increasing anxiety and depression.
[2022-08-01] MEDS: oxyCODONE HCl Immed Release 5 MG TABLET PO ×4 (00:18→19:44)
[2022-08-01] MEDS: Acetaminophen 325 MG TABLET 650 MG PO ×4 (00:18→19:44)
[2022-08-01 05:28] VITALS: BP 106/53; PULSE 80; RESP 15; TEMP 36.5; O2SAT 97
[2022-08-01] MEDS: polyethylene glycoL 3350 17 GM POWD.PACK PO (08:38)
[2022-08-01 08:56] VITALS: BP 101/50; PULSE 81; RESP 16; TEMP 36.3; O2SAT 99
--- NOTE | 2022-08-01 14:11 | PC.NURSE ---
Patient working with physical therapy, reporting increase in pain. Medicated with PRN tylenol and 5mg oxycodone, will montior for pain relief.
--- NOTE | 2022-08-01 14:55 | MHC.CM.ED ---
Received telephoen call from Yumi at [facility]. Yumi has questions about patient's current living situation and current needs. Overflow unit asked to provide patient with telephone so she can contact Yumi directly at [phone].
[2022-08-01 17:21] VITALS: BP 99/59; PULSE 85; RESP 16; TEMP 35.9; O2SAT 100
--- NOTE | 2022-08-01 18:40 | PC.NURSE ---
Patient ambulating to bathroom with walker independently. Only needing assistance to get out of bed. Taking shower this afternoon independently. Remains alert and oriented x3, family in at this time for visit.
--- NOTE | 2022-08-01 19:41 | PC.NURSE ---
Took over care of the pt at 1900. Pt reporting 9/10 pain and requested pain medications. Oxycodone PRN will be administered. Pt A&Ox4, GCS 15, calm and pleasant in bed at this time
[2022-08-01 21:55] VITALS: BP 101/57; PULSE 96; RESP 18; TEMP 36.5; O2SAT 95
[2022-08-02 00:24] VITALS: BP 95/51; PULSE 80; RESP 20; TEMP 36.1; O2SAT 98
[2022-08-02] MEDS: oxyCODONE HCl Immed Release 5 MG TABLET PO ×3 (04:57→20:43)
[2022-08-02] MEDS: Acetaminophen 325 MG TABLET 650 MG PO ×3 (04:58→23:13)
--- NOTE | 2022-08-02 05:11 | PC.NURSE ---
Pt complained of 10/10 pain. PRN pain medication was administered. Pt then ambulated to the bathroom with a walker. Pt was able to get her legs off the bed by herself, required help getting back into bed. No new orders at this time.
[2022-08-02 06:00] VITALS: BP 98/45; PULSE 70; RESP 18; TEMP 36.5; O2SAT 95
[2022-08-02] MEDS: polyethylene glycoL 3350 17 GM POWD.PACK PO (09:40)
[2022-08-02 16:12] VITALS: BP 99/50; PULSE 77; TEMP 36.4
[2022-08-02 20:17] VITALS: BP 93/55; PULSE 83; RESP 16; TEMP 36.3; O2SAT 95
--- NOTE | 2022-08-02 20:18 | MHC.EDTECH ---
pt is resting watching tv vitals were taken and some ice for her drink she has no other request at this time
--- NOTE | 2022-08-02 22:15 | PC.NURSE ---
Assumed care of patient approx. 1900. Pt. A&O*3, ALEXANDRE weakly. Rates pain 9/10 constant; minimal pain relief. Revd PRN pain medications with heat application to assist with comfort. LS note L CTA/R C/D; remains on RA. +pulses, warm, mild edema noted of right upper and mid thigh as compared to left. No IV access/not necessary at this time. +BS*4, soft, NT/ND. LBM 08/02/22. Voiding in BR/commode with 1 assist and walker. Right leg remains in splint; placement checked and appropriate. Immediate care needs addressed. Using phone. Encourage to use call angel.
--- NOTE | 2022-08-02 22:27 | MHC.EDTECH ---
pt needed assistance to get her leg from off the bed for her to ambulate to the bed. pt would benefit from a dog leash from Pt to help her manage her leg for conformability with pain verses someone else holding it up or down and making the pain worse
[2022-08-03] MEDS: oxyCODONE HCl Immed Release 5 MG TABLET PO ×3 (02:31→17:41)
--- NOTE | 2022-08-03 03:13 | MHC.EDTECH ---
pt is resting is not in need for anything at this time
[2022-08-03 06:00] VITALS: BP 101/65; PULSE 73; RESP 17; TEMP 36.4; O2SAT 100
[2022-08-03] MEDS: Acetaminophen 325 MG TABLET 650 MG PO ×3 (08:10→20:24)
[2022-08-03] MEDS: polyethylene glycoL 3350 17 GM POWD.PACK PO (08:10)
--- NOTE | 2022-08-03 09:45 | PC.NURSE ---
alert, oriented x4. able to make needs known. right knee immobilizer in place. CMS intact. ambulates with walker to and from bathroom. call angel within reach
--- NOTE | 2022-08-03 12:07 | PC.NURSE ---
PT treatment went smoothly. patient showered, up in chair.
[2022-08-03 14:28] VITALS: BP 105/55; PULSE 86; RESP 12; TEMP 37.1; O2SAT 100
--- NOTE | 2022-08-03 15:53 | MHC.EDTECH ---
THIS PCT ASSUMED CARE OF PT AT 1500 ,PT UP IN CHAIR ,HER SISTER VISITING .
--- NOTE | 2022-08-03 19:26 | PC.NURSE ---
assumed care of patient at 1900 - patient has family member visitor at bedside. A&Ox4, speaking clear full sentences in conversation, no s/s of any apparent distress . will continue to monitor
--- NOTE | 2022-08-03 20:56 | MHC.CM.ED ---
CM met with patient to update on Bed search. Pt with good affect. Visiting with family. OOB in recliner. Continues to make progress with daily PT. Remains highly motivated. Pt aware that [facility] might have both male and female beds on Saturday.
[2022-08-03 22:40] VITALS: BP 91/57; PULSE 84; TEMP 36.6; O2SAT 100
[2022-08-04] MEDS: oxyCODONE HCl Immed Release 5 MG TABLET PO ×3 (00:03→18:21)
[2022-08-04 08:12] VITALS: BP 99/66; PULSE 63; RESP 16; TEMP 36.9; O2SAT 99
[2022-08-04] MEDS: polyethylene glycoL 3350 17 GM POWD.PACK PO (08:27)
--- NOTE | 2022-08-04 12:19 | MHC.CM.PN ---
PT AWAITING STR PLACEMENT REFERRAL BROADCASTED THE [facility] DO NOT EXPECT ANY BED OPENINGS PRIOR TO SATURDAY
[2022-08-04] MEDS: Acetaminophen 325 MG TABLET 650 MG PO ×2 (14:16→20:09)
[2022-08-04 15:46] VITALS: BP 103/51; PULSE 68; O2SAT 100
[2022-08-04 19:21] VITALS: RESP 16
[2022-08-04 21:09] VITALS: RESP 16
[2022-08-04 22:00] VITALS: BP 91/50; PULSE 74; RESP 16; TEMP 36.5; O2SAT 97
[2022-08-05] MEDS: oxyCODONE HCl Immed Release 5 MG TABLET PO ×4 (05:00→20:09)
[2022-08-05 06:14] VITALS: BP 102/53; PULSE 65; RESP 19; TEMP 36.6; O2SAT 100
--- NOTE | 2022-08-05 08:21 | MHC.CM.ED ---
Pt continues holding in the ED for STR placement: [facility] interested and following but does not have a female bed as of this note. They expect discharges over the weekend and may be able to offer by Saturday, 08/06. ED CM to follow.
[2022-08-05] MEDS: Acetaminophen 325 MG TABLET 650 MG PO (08:24)
[2022-08-05] MEDS: polyethylene glycoL 3350 17 GM POWD.PACK PO (08:24)
[2022-08-05 15:48] VITALS: BP 103/54; PULSE 72; RESP 16; TEMP 36.6; O2SAT 97
--- NOTE | 2022-08-05 15:48 | MHC.EDTECH ---
this pct assumed care of pt at 1500 ,pt sitting up in bed ,in great sprits on phone ,vitals sign taken ,i asked pt if she needed anything ,pt said no she is ok for now .
--- NOTE | 2022-08-05 19:00 | MHC.EDTECH ---
PATIENT FRIEND BROUGHT DINNER FOR PATIENT ,ATE 100 % OF MEAL ,PT IS WALKING BACK AND FORTH TO BATHROOM BY HERSELF WITH WALKER ,PATIENT HAD A SHOWER THIS EVENING .
[2022-08-05 21:07] VITALS: BP 92/52; PULSE 75; RESP 16; TEMP 36.9; O2SAT 97
--- NOTE | 2022-08-05 21:07 | MHC.EDTECH ---
PATIENT RANG CALL WOODS ,NEEDED SALTINE CRACKERS ,STRING CHEESE AND WATER ,VITALS SIGN TAKEN ,CALL WOODS WITHIN REACH .
[2022-08-06] MEDS: oxyCODONE HCl Immed Release 5 MG TABLET PO ×2 (10:04→13:08)
[2022-08-06] MEDS: polyethylene glycoL 3350 17 GM POWD.PACK PO (10:04)
[2022-08-06 10:35] VITALS: BP 94/47; PULSE 65; RESP 16; TEMP 36.2; O2SAT 100
--- NOTE | 2022-08-06 11:50 | PC.NURSE ---
PT at bedside to work with pt.
--- NOTE | 2022-08-06 12:01 | PC.NURSE ---
pt up to shower. returned to bedside chair resting comfortably. reports feeling less hopeful for placement.
--- NOTE | 2022-08-06 12:56 | MHC.CM.ED ---
Addendum entered by Alexus Wheat 08/06/22 13:02: Left voicemailes for Siri and Ann-Marie of [facility], providing discharge information. Original Note: [facility] is able to offer a bed. Patient can leave at 430pm. Kin OLSEN booked. [facility] with chart. Patient, Odilia LAU and Zenia VALDIVIA aware. Continue to monitor for d/c needs.
[2022-08-06] MEDS: Acetaminophen 325 MG TABLET 650 MG PO (13:08)
--- NOTE | 2022-08-06 16:31 | PC.NURSE ---
nurse to nurse report called to [facility]
== END 2022-08-06 17:36 | disposition skilled nursing facility (03) ==
LOC: HO.ED 09:54 → HO.SSS 12:30 → HO.ED 14:13
PROVIDERS: Anesthesiology; Orthopaedic Surgery; Physician Assistant Medical; Emergency Provider Emergency Medicine
PROC: (CPT 27252; principal; 2022-07-25 15:10)
DX: S73.014A Posterior dislocation of right hip, initial encounter (principal); Y01.XXXA Assault by pushing from high place, initial encounter; M25.451 Effusion, right hip; M25.512 Pain in left shoulder; M54.2 Cervicalgia; Z20.822 Contact with and (suspected) exposure to COVID-19; F17.210 Nicotine dependence, cigarettes, uncomplicated; F12.90 Cannabis use, unspecified, uncomplicated; Y93.89 Activity, other specified; Y92.038 Other place in apartment as the place of occurrence of the external cause; Y99.9 Unspecified external cause status
CPT/HCPCS: 27252; 36415; 51702; 70450; 71045; 72125; 73030; 73502; 73700; 80053; 81001; 81025; 85025; 87635; 96372; 97110; 97116; 97162; 97166; 97530; 99285; J1100; J1170; J1885; J2270; J2405; J3010